=== PATIENT | male | born 1950 | race Native Hawaiian/Other Pacific Islander ===

== ENCOUNTER 2016-05-12 09:41 | Outpatient (CLI) | payer BC | END 2016-05-12 10:05 | disposition short-term general hospital (02) | LOC: AMB 09:41 | DX: M25.551 Pain in right hip (principal); M21.851 Other specified acquired deformities of right thigh; W01.0XXA Fall on same level from slipping, tripping and stumbling without subsequent striking against object, initial encounter; Y92.69 Other specified industrial and construction area as the place of occurrence of the external cause | CPT/HCPCS: A0425; A0427 ==

== ENCOUNTER 2017-07-25 08:55 | Outpatient (CLI) | payer OTHER | END 2017-07-25 19:59 | disposition home or self-care (01) | LOC: RAD 08:55 | DX: J20.8 Acute bronchitis due to other specified organisms (principal) ==

== ENCOUNTER 2018-03-16 08:47 | Outpatient (CLI) | payer OTHER | END 2018-03-16 22:53 | disposition home or self-care (01) | LOC: RESP 08:47 | DX: R06.02 Shortness of breath (principal) ==

== ENCOUNTER 2020-10-07 08:41 | Outpatient (CLI) | payer OTHER | END 2020-10-07 23:59 | disposition home or self-care (01) | LOC: RESP 08:41 | PROVIDERS: ATTEND Physician Assistant | DX: I49.8 Other specified cardiac arrhythmias (principal); R53.83 Other fatigue ==

== ENCOUNTER 2020-10-22 07:53 | Outpatient (CLI) | payer OTHER | END 2020-10-22 19:06 | disposition home or self-care (01) | LOC: NM 07:53 | PROVIDERS: ATTEND Physician Assistant | DX: R06.02 Shortness of breath (principal); R53.83 Other fatigue; I49.9 Cardiac arrhythmia, unspecified | CPT/HCPCS: A9500 ==

== ENCOUNTER 2020-11-05 10:03 | Outpatient (CLI) | payer OTHER | END 2020-11-05 22:04 | disposition home or self-care (01) | LOC: RESP 10:03 | PROVIDERS: ATTEND Physician Assistant | DX: R53.83 Other fatigue (principal); R00.1 Bradycardia, unspecified | CPT/HCPCS: 93225 ==

== ENCOUNTER 2022-12-02 09:16 | Outpatient (CLI) | payer OTHER | END 2022-12-02 18:58 | disposition home or self-care (01) | LOC: RAD 09:16 | PROVIDERS: ATTEND Nurse Practitioner | DX: Z87.891 Personal history of nicotine dependence (principal); R05.9 Cough, unspecified; R53.83 Other fatigue ==